=== PATIENT | female | born 1970 | race Caucasian/White ===

== ENCOUNTER 2021-07-09 14:18 | Inpatient (IN) | payer OTHER ==
[~2021-07-09] VITALS: Ht 152.4 cm; Wt 67.6 kg
--- NOTE | ~2021-07-09 | EEG ---
[facility] [place] [address] ELECTROENCEPHALOGRAM Name: PAMELA MENDEZ Room #: 449-I ADM IN M.R.#: [id number] Admission: 07/09/21 Attend Phys: Tra Kim MD Discharge: Date of : 68 Report #: [id number] THIS REPORT FOR: //name// DATE OF SERVICE: 07/10/2021 This patient's EEG was done by placing the electrode by standard 10-20 system of electrode placement. Both referential and sequential montages were used for recording. Background activity in this patient's EEG is about 11 Hz. It is about 40 microvolt. The patient repeatedly goes to sleep and that is associated with bilateral slowing and vertex sharp waves. Throughout the record, no active epileptiform activity was noticed. IMPRESSION: This patient's EEG is within normal limits. Thank you very much for this referral. By: [id number] Tino Smiley MD /nt
--- NOTE | ~2021-07-09 | HC ---
[facility] [place] [address] CONSULTATION Name: PAMELA [facility]ENDEZ [facility] [id number] Admission: 07/09/21 Attend Phys: Tra Kim MD Discharge: Date of : 68 Report #: [id number] THIS REPORT FOR: cc: FAM - No family physician/PCP FAM - No family physician/PCP Tino Smiley MD ~ DATE OF SERVICE: 07/10/2021 HISTORY OF PRESENT ILLNESS: This is a 50-year-old female patient who is difficult to evaluate. She said she had an episode, which evil brought it on. She said that evil has brought this kind of episode even before. She continued to change her history how many times the evil brought this episode on, but she is pretty adamant that all the episodes were brought on by evil. She says during this episode she was conscious because she knew what was going around. She just could not express herself. She believe that evil cut her tongue and that is why she could not express herself. REVIEW OF SYSTEM: Indicates she is COVID positive. She is not having any focal deficit now. Her speech was intact. It was difficult to fully evaluate because she kept going to evil. On admission, it looks like they were told that the patient does not have any psychiatric history, but looks like she does have a psychiatric history. She is very reluctant to provide any other history and it was very difficult to evaluate her in that regard. She was apparently in [facility]. Apparently, she was on Flagyl the best I can tell. I tried to ask her if she drank any alcohol with it or not. She went back to the question of evil at that time. This was the relevant 14-point review of systems, which I could get. PAST MEDICAL HISTORY: Positive for some GI problems. She has been to the [facility]. Very poor and contradictory history in this regard. FAMILY HISTORY: Negative for congenital epilepsy. SOCIAL HISTORY: She says she smokes, but did not elaborate further. PHYSICAL EXAMINATION: Indicate to me she was alert, responsive, able to follow simple and complex command, but she kept going back to the subject of evil. Her neuromuscular and cranial nerve examination, the best it could be carried out, was symmetrical. There was no meningeal sign. I could not look at the patient's fundus. Cardiorespiratory examinations appear unremarkable. In Emergency Room, she had CT angiogram of the head and neck and that does show what looks like some congenital variation, but nothing which can explain the patient's symptoms. I went and reviewed the patient's EEG. EEG is pretty well formed. There is no [address] [address] CONSULTATION Name: PAMELA MENDEZ Room #: 449-I ADM IN M.R.#: [id number] Admission: 07/09/21 Attend Phys: Tra Kim MD Discharge: Date of : 68 Report #: [id number] seizure activity there. IMPRESSION AND PLAN: There is a good chance that the patient's symptoms are psychogenic in origin. I talked to her about that. Psych consult is being requested. Since the history is so poor, I suggested doing an MRI of the brain just to make sure there is no pathology there. I will check the MRI. If MRI shows some abnormality, we will be happy to follow up, but otherwise I think the management is going to be the other known neurological problems. She does have a slightly abnormal TSH and that can be addressed, but it is not bad enough to cause her any symptoms. More than 50 minutes of time was spent taking care of this patient today and that includes counseling, coordinating, reviewing the imaging studies and reviewing the record. By: [id number] Tino Smiley MD /nt
[2021-07-09 14:50] LABS: ABSOLUTE NEUTROPHILS 6.3 thou/uL (1.4-8.2); BASOPHILS 0.6 % (0.0-2.0); EOSINOPHILS 0.1 % (0.0-3.0); HEMATOCRIT 45.8 % (37.0-47.0); HEMOGLOBIN 15.5 gm/dL (12.0-15.0); LYMPHOCYTES 16.9 % (24.0-44.0); MCH 30.8 pg (26.0-34.0); MCHC 33.8 g/dL (28.0-37.0); MCV 91.2 fL (80.0-100.0); MONOCYTES 16.2 % (1.0-8.0); PLATELET COUNT 286 thou/uL (150-400); POLYS 66.2 % (36.0-66.0); RBC 5.02 mil/uL (4.20-5.00); RDW 13.7 % (10.5-14.5); WBC 9.5 thou/uL (4.0-11.0)
[2021-07-09 14:56] LABS: CALCIUM 9.2 mg/dL (8.5-10.1); POTASSIUM 3.9 mmol/L (3.5-5.1)
[2021-07-09 15:06] LABS: ALBUMIN 3.8 g/dL (3.4-5.0); DIRECT BILIRUBIN 0.1 mg/dL (<0.1-0.2); TOTAL BILIRUBIN 0.8 mg/dL (0.2-1.0); TOTAL PROTEIN 7.2 g/dL (6.4-8.2)
[2021-07-09 16:29] LABS: URINE BILIRUBIN NEGATIVE (Negative); URINE BLOOD TRACE (Negative); URINE CLARITY CLEAR; URINE COLOR YELLOW; URINE GLUCOSE-RANDOM* NEGATIVE (Negative); URINE KETONES TRACE (Negative); URINE LEUKOCYTES-REFLEX NEGATIVE (Negative); URINE NITRITE-REFLEX NEGATIVE (Negative); URINE PROTEIN (DIPSTICK) TRACE (Negative); URINE UROBILINOGEN 0.2 E.U./dl (0.2-1.0)
[2021-07-09 16:38] LABS: AMP/METHAMP Negative (Negative); BARBITURATES Negative (Negative); BENZODIAZEPINES Negative (Negative); COCAINE Negative (Negative); METHADONE Negative (Negative); OPIATES Negative (Negative); PCP Negative (Negative)
--- NOTE | 2021-07-09 19:36 | NUR ---
ASSUMED CARE OF PT AT 1900. PT READY TO BE TRANSPORTED TO IN PATIENT FLOOR AT THIS TIME. NO DOCUMENTATION BESIDE A GENERAL AND TRIAGE ASSESSMENT WERE DOCUMENTED ON THIS PT PRIOR TO MY ARRIVAL.
[2021-07-09 19:38] VITALS: BP 118/72
[2021-07-09] MEDS ORDERED: LISINOPRIL-HCT1 EACH PO (20:08)
[2021-07-09] MEDS ORDERED: VITAMIN D-40010 MCG PO (20:10)
[2021-07-09] MEDS ORDERED: K2-4545 MCG PO (20:10)
[2021-07-10 04:52] VITALS: BP 116/66
[2021-07-10 06:03] LABS: ABSOLUTE NEUTROPHILS 3.5 thou/uL (1.4-8.2); BASOPHILS 0.2 % (0.0-2.0); EOSINOPHILS 0.3 % (0.0-3.0); HEMATOCRIT 40.8 % (37.0-47.0); HEMOGLOBIN 13.6 gm/dL (12.0-15.0); LYMPHOCYTES 39.2 % (24.0-44.0); MCH 31.1 pg (26.0-34.0); MCHC 33.4 g/dL (28.0-37.0); MCV 92.9 fL (80.0-100.0); MONOCYTES 14.3 % (1.0-8.0); PLATELET COUNT 237 thou/uL (150-400); RBC 4.39 mil/uL (4.20-5.00); RDW 13.9 % (10.5-14.5); WBC 7.6 thou/uL (4.0-11.0)
[2021-07-10 06:43] LABS: CALCIUM 8.4 mg/dL (8.5-10.1); CREATININE 0.9 mg/dL (0.6-1.0); POTASSIUM 3.1 mmol/L (3.5-5.1)
--- NOTE | 2021-07-10 07:15 | NUR ---
admit pt admitted to room 451 with covid. a/o x4 behavior appropriate vss. telemetry intact reading sr st. at shift she came out of her room and stated god cured her covid and she needed to walk around. day nurse settled her down, mj turcios notified. ordered to moniotor behavior and report to physicians when rounding.
--- NOTE | 2021-07-10 08:09 | EKG ---
[place] [address] [facility] [place] [address] ELECTROCARDIOGRAM REPORT Name: PAMELA MENDEZ Room #: [facility]- ADM IN M.R.#: [id number] Admission: 07/09/21 Attend Phys: Tra Kim MD Discharge: Date of : 68 Report #: [id number] [facility] ED Test Date: 2021-07-09 Test Time: 14:34:19 Pat Name: PAMELA MENDEZ Department: Room: [facility] Gender: F [employer] Consultant: ALEX : 1970 Requested By: Sheldon Arboleda Order Number: [id number] MD: Keagan Saldana Measurements Intervals [place] Rate: 106 P: 65 NH: 140 QRS: 52 QRSD: 75 T: 46 QT: 371 QTc: 493 Interpretive Statements Sinus tachycardia RSR' in V1 or V2, probably normal variant Borderline prolonged QT interval No previous ECG available for comparison Electronically Signed On 07-10-2021 8:08:58 CERTIFIED ATHLETIC TRAINER by Keagan Saldana [email or web address] <ELECTRONICALLY SIGNED> By: Keagan Saldana MD, [facility] 07/10/21 0808 1434 1434 Keagan Saldana MD, FACC /EPI
[2021-07-10 09:06] LABS: ALBUMIN 3.6 g/dL (3.4-5.0); DIRECT BILIRUBIN 0.2 mg/dL (<0.1-0.2); TOTAL BILIRUBIN 0.6 mg/dL (0.2-1.0)
[2021-07-10 10:00] VITALS: BP 124/74
--- NOTE | 2021-07-10 13:55 | NUR ---
PT ADMITTED RELATED TO AMS AND COVID. CM REVIEWED CHART AND SPOKE WITH CARE TEAM. CM CALLED AND SPOKE WITH PT VIA PHONE THIS AM. SHE APPEARED TO BE ALERT AND ORIENTED. CM ROLE INTRODUCED. PT INDICATED HE HAD BEEN LIVING IN A HOUSE WITH HER SIG OTEHR JENNIFER CUNHA VICE PRESIDENT FOR INSTRUCTION. SHE INDICATED THAT THERE ARE 7 STEPS TO ENTER THE HOME AND 2 SETS OF 7 STEPS INSIDE. SHE INDICATED SHE HAD BEEN INDEPDENENT WITH GAIT AND ADLS VICE PRESIDENT FOR INSTRUCTION AND THAT SHE HAD BEEN ASSISTING SIG OTHER PHYSICALLY AT TIMES. PT INDICATE THAT HER PCP IS DR. CARO SKAGGS. PT'S MOTHER KAYLA KNIGHT IS A GOOD CONTACT FOR HER . CM CALLED AND SPOKE WITH MOTHER AND SHE CONFIRNED THE ABOVE. SHE INIDCATED SHE RESIDES IN [place] AND IS 72 BUT THAT SHE HAD SPOKEN TO PT DURING THE LAST 11 DAYS DAILY AND THAT THE CONDITION IN WHICH PT ADMITTED IN IS NOT NORMAL FOR PT WHO IS USUALLY AN ANALYTICAL THINKER AND A TALKER. NEURO CONSULTED WELL PSYC. CM FOLLOWING REGARDING DC PLANNING.
--- NOTE | 2021-07-10 15:59 | NUR ---
AT SHIFT CHANGE THIS MORNING PATIENT WALKED INTO KAMARA NO MASK ON, STATING "GOD HAS CURED ME." PATIENT WAS REDIRECTED BACK TO ROOM AND REMAINED IN THERE STILL HAVING DELIUSION THOUGHT OF GOD SPEAKING TO HER. CONSULTED PSYCH. AFTER EVAL PATIENT WAS MOVED TO ROOM 449 WHERE A SITTER COULD WATCH PATIENT THROUGH WINDOW. PER PSYCHES ORDER FOR SITTER AT BEDSIDE. BELONGING WERE TAKEN FROM PATIENT AND LABELED AND PUT INTO MED ROOM.
[2021-07-10 16:21] VITALS: BP 149/87
--- NOTE | 2021-07-11 07:54 | NUR ---
ORDERS FOR EVAL AND TREAT. Pt IS HAVING NO DIFFICULTY WITH MOBILITY AND HAS ACTUALLY WALKED OUT IN HALLWAY DUE TO BEHAVIORS. WILL DEFER FORMAL P.T. EVAL BUT Pt APPEARS SAFE WITH HER MOBILITY
--- NOTE | 2021-07-11 08:24 | NUR ---
ASSUME CARE 1900. PT/VITALS STABLE. NO DISTRESS NOTED. PT NOTED PACING IN ROOM THROUGHOUT THE NIGHT. NO SLEEP NOTED. PT IS CALM AND COOPERATIVE WITH CARE. DENIES ANY PAIN. UP AD LUCIANO. IS TEARFUL AT TIMES/STATES WANTS TO EST BUT IS AFRAID SHE WILL HURT. FREQUENT REDIRECTING. NO AGRESSION NOTED. PT APPEARS VERY CALM. ASSESSMENT CHARTED. PROGRESSING WELL WITH POC. PLAN IS TO CONTINUE TO MONITOR MENTAL STATUS/CONTINUE WITH ABX THERAPY. WILL CONTINUE TO MONITOR AND FOLLOW WITH POC
--- NOTE | 2021-07-11 14:13 | NUR ---
CM REVIEWED CHART CHART AND SPOKE WITH CARE TEAM. PSYC INDICATED THAT PT IS MORE PSYCHOTIC THIS DAY AND REMAINS ON IV ABX. CM FOLLOWING REGARDING DC PLANNING NEEDS.
[2021-07-11 16:12] VITALS: BP 123/74
--- NOTE | 2021-07-11 18:28 | NUR ---
PATIENT IN ROOM WITH 1:1 SITTER; PATIENT APPEARS WITH FLAT GAZE; DENIES SI AT THIS TIME; HYPER-RELIGOUS ACTIONS THROUGHOUT THE DAY; A&O*4; UP ADLIB WITH SUPERVISION; VSS ON ROOMAIR, MEDSURG STATUS CHANGED FADY DR.HURA BRIZUELA; LUNG SOUNDS DIMINISHED WITH WHEEZING NOTED DURING AUSCULTATION; NO S/O DISTRESS NOTED; BSP*4, NONTENDER; 22G IV IN LEFT HAND WITH N.S RUNNING 75ML/HR; PATIENT WAS CONSULTED FOR PSYCH; MEDICATION COMPLIANT; PATIENT WAS SENT DOWN TO GET MRI @1530, PATIENT AGREED TO GO, ONCE DOWNSTAIRS PATIENT BECAME UNCOMPLIANT WITH SCAN AND SECURITY WAS CALLED TO ASSIST PATIENT BACK TO HER ROOM; DELUSIONS PRESENT WITH DISORGANIZED THOUGHTS; PATIENT PRESENTS VERY PARNOID WITH ALL CARES AND TAKES INCREASED TIME TO AGREE TO ALL TASKS INCLUDING EATING MEALS;
[2021-07-11 20:08] VITALS: BP 131/80
--- NOTE | 2021-07-12 03:40 | NUR ---
ASSUMED CARE AT 1930 OF 07/11. PATIENT REMAINS ON 1:1 SITTER. PATIENT APPEARS WITH FLAT GAZE, BUT BECOMES TEARFUL AND ANXIOUS INTERMITTENTLY. AGREEABLE WITH MEDICATION ADMINISTRATION. THERAPUTIC COMMUNICATION IMPLEMENTD WHEN COMMNUNICATING WITH PATIENT. MOVABLE BULKHEAD INSTALLER CAME BY AT START OF SHIFT AND PROVIDED PATIENT WITH BIBLE AND DEVOTIONAL PER PATIENTS REQUEST. PATIENT HAS BEEN READING ON AND OFF DURING THE NIGHT. PATIENT HAS BEEN DOSING ON AND OFF. SHE REPORTS THAT SHE NEEDS TO STAY UP AND AND FIGHT THE URGE TO SLEEP TO PROVE THAT SHE HAS PERSEVERANCE. PATIENT IS ENCOURAGED TO SLEEP AND REST BECUASE IT IS IMPORTANT FOR HER HEALING PROCESS. PATIENT AGREES, BUT REPORTS SHE FEELS GUILTY WHEN SHE FALLS ASLEEP. EMOTIONAL SUPPORT PROVIDED. CALL LIGHT LEFT WITHIN REACH, AND PATIENT HAS BEEN MAKING HER NEEDS KNOWN. PROVIDED WITH SNACKS. WILL CONTINUE TO MONITOR.
--- NOTE | 2021-07-12 08:23 | HC ---
[facility] [place] [address] CONSULTATION Name: PAMELA MENDEZ Room #: [facility] ADM IN .R.#: [id number] Admission: 07/09/21 Attend Phys: Tra Kim MD Discharge: Date of : 68 Report #: [id number] THIS REPORT FOR: cc: FAM - No family physician/PCP FAM - No family physician/PCP Pablo Lala MD ~ DATE OF SERVICE: 07/11/2021 INFECTIOUS DISEASE CONSULTATION ATTENDING PHYSICIAN: Dr. Kim. REASON FOR EVALUATION: COVID-19 infection. Also apparent coag-negative Staphylococcus septicemia. HISTORY OF PRESENT ILLNESS: Chart reviewed. The patient examined. This is a 50-year-old woman who was admitted through the Emergency Room. It is notable she has underlying significant psychiatric history. She was recently hospitalized with what is described as colitis at a different hospital. She was found to be markedly encephalopathic and now is alert, calm, as required 1:1 with a sitter as per the initial evaluation. Blood cultures were collected now, both of which are growing organisms, one is described as Staphylococcus hominis, the other is gram-positive cocci, awaiting susceptibilities. She was empirically started on antimicrobial therapy with cefepime and vancomycin. She has generally a flat affect. She does admit to pain, although describes pain in her sole. She is not aware of any fevers. She has a diminished p.o. intake. She denies dyspnea or cough. ALLERGIES: Listed to CORTICOSTEROIDS, PENICILLINS, QUINOLONES, METRONIDAZOLE, OMEPRAZOLE. She is not aware of any particular rashes other than the omeprazole, perhaps more attributable to adverse drug effects. CURRENT MEDICATIONS: Includes vancomycin, risperidone, trazodone, lorazepam, lisinopril, pantoprazole, lorazepam, enoxaparin, cefepime, hydralazine, ondansetron, and vancomycin. PAST MEDICAL HISTORY: Recent hospitalization with colitis, hypertension, previous history of esophageal and duodenal ulcers, gastritis with reflux, fracture of cervical spine and a diagnosis of COVID. SOCIAL HISTORY: Former smoker. Does not use marijuana. No ethanol. FAMILY HISTORY: Noncontributory. REVIEW OF SYSTEMS: Otherwise, unremarkable. [facility] [address] [place] [address] CONSULTATION Name: PAMELA MENDEZ Room #: 449-I [facility].#: [id number] Admission: 07/09/21 Attend Phys: Tra Kim MD Discharge: Date of : 68 Report #: [id number] PHYSICAL EXAMINATION: GENERAL: She has a flat affect. She is not overtly distressed. She appears pale. VITAL SIGNS: Temperature 98.4, pulse 66, respirations 20, blood pressure 123/74. SKIN: Warm, dry, no rashes. HEENT: Normocephalic. Extraocular muscles intact. NECK: Supple. She is maintained on room air. LUNGS: Diminished breath sounds. Few scattered crackles at the bases. HEART: Regular, borderline bradycardic. I do not appreciate a murmur. ABDOMEN: Soft, nontender. EXTREMITIES: No cyanosis. GENITOURINARY AND RECTAL: Deferred. LABORATORY DATA: Blood cultures as described above. TSH is 0.183, free T4 of 1.5. Hepatic panel: AST of 68, ALT of 76, albumin 3.6, total protein 6.0. Procalcitonin less than 0.05. CBC: White count of 7.6, H and H of 13.6 and 40.8, platelets of 237. Positive coronavirus testing. CT abdomen and pelvis showed mild sigmoid colonic diverticulosis with circumferential mural thickening, pericolonic inflammation, question of some colitis, otherwise unremarkable for any active process. ____ is 0.9. CT of the neck with contrast without significant abnormality. ASSESSMENT AND PLAN: COVID-19 infection, complicated by ____ encephalopathy. Secondly, she has positive blood cultures, /. We would wait for second result. If different Coag-negative Staphylococcus, we would view them as a contaminant. At this point, we would continue treatment with combination therapy; in the event of suspected false positive, would be able to back off that as well. At this point, I do not think there is a necessity to treat any active COVID infection in particular, no evidence of pneumonitis. She is maintained in isolation. Continue to monitor expectantly. <ELECTRONICALLY SIGNED> By: Pablo Lala MD 07/12/21 0823 1621 2210 Pablo Lala MD /nt
--- NOTE | 2021-07-12 16:46 | NUR ---
PER DR. PARKER'S REQUESTED JEAN HAD SENT CONSULT TO [facility] FOR THEM TO MEET WITH PT TO DETERMINE SERVICES UPON DC. JEAN REACHED OUT TO HEMAL LEBRON THURSDAY AFTERNOON. SHE INDICATED THAT SHE CAN COME SEE HER TOMORROW Thursday07.13.21 LATE MORNING. CM FOLLOWING REGARDING DC PLANNING.
[2021-07-13 03:24] VITALS: BP 125/77
[2021-07-13 06:44] LABS: ALBUMIN 3.3 g/dL (3.4-5.0); CALCIUM 8.8 mg/dL (8.5-10.1); CREATININE 0.7 mg/dL (0.6-1.0); MAGNESIUM 2.1 mg/dL (1.8-2.4); POTASSIUM 4.1 mmol/L (3.5-5.1); TOTAL BILIRUBIN 0.7 mg/dL (0.2-1.0)
[2021-07-13 07:21] VITALS: BP 118/72
--- NOTE | 2021-07-13 12:07 | NUR ---
MONIKA FROM [facility] CALLED ABOUT A CONSULT SHE RECIEVED, REPORTS SHE WILL BE IN TO SEE THE PT 07/14/21 MID MORNING
--- NOTE | 2021-07-13 15:40 | NUR ---
Upon assessment patient was A&OX4 and pleasant howvever patient did have times of tearfulness "missing her mom". Phone was brought to her room and she was able to speak with her mother. Vitals remain stable. Provider rounded on patient. No new medical concerns seen. Patient denies new needs. Plan is for [facility] to assist with discharge.
[2021-07-13 16:05] VITALS: BP 123/71
[2021-07-13 19:31] VITALS: BP 138/79
--- NOTE | 2021-07-14 03:47 | NUR ---
IN AGREEMENT WITH NURSE ARMANDO ON THE ASSESSMENT OF THIS PT. PT HAS DEPRESSION WITH RECENT SUICIDAL IDEATIONS. CURRENTLY NO IDEATIONS. AFTER PSYCH EVALUATION IT IS DETERMINED PT HAS BIPOLAR WITH PSYCHOSIS. CALLS OUT APPROPRIATELY FOR ASSISTANCE. AT TIMES CAN BE TEARFUL AND ANXIOUS. CALL LIGHT IS WITHIN REACH.
[2021-07-14 07:32] VITALS: BP 116/48
[2021-07-14 16:47] VITALS: BP 127/70
--- NOTE | 2021-07-14 18:24 | NUR ---
Patient resting pleasantly, talking on the phone with family. RN gave back purse, clothes and cell phone to patient per patient request. Patient taking a shower, no pain, call light within reach.
[2021-07-14 19:30] VITALS: BP 123/75
[2021-07-15] VITALS (7 sets, daily range): BP systolic 115–135; BP diastolic 65–79
[2021-07-15] MEDS ORDERED: TRAZODONE HCL50 MG PO (16:14)
[2021-07-15] MEDS ORDERED: RISPERIDONE0.5 M1 PO (16:14)
--- NOTE | 2021-07-15 16:53 | NUR ---
HOSPITALIST, DR. PARKER AND PAPO WITH [facility] ALL SAW PT THIS AFTERNOON. IT WAS INDICATED THAT PT WAS DOING BETTER. [facility] COMPLETED A SAFTEY PLAN WITH PT. DR. PARKER IS RECOMMENDING PT ESTABLISH HERSELF WITH [facility] UPON DC. A OR MEDICAID APPLICATION WAS FILED DURING PT'S ADMISSION. CARE TEAM HAVE INDICATED THAT PT IS MEDICALLY STABLE TO DC HOME THIS DAY. PT TO DC HOME TO SELF CARE. [facility] PROVIDED. NO OTHER CM INTERVENTION INDICATED. CASE CLOSED.
--- NOTE | 2021-07-15 17:39 | NUR ---
RESUMMED CARE; PATIENT IN ROOM RELAXING IN CHAIR; PATIENT DENIES PAIN-SOB-CP; PATIENT HAS NO COMPLAINTS TO VOICE AT THIS TIME; A&O*4; HYPERVERBAL; DENIES SI/HI/AVH; VSS ON ROOM AIR; ON ENHANCED PRECAUTIONS ON ROOM AIR; IV IN THE LEFT FORARM-D/C LINE @1730; PATIENT STATES SHE HAS SOME ANXIETY BUT "THATS NORMAL." PATIENT SENT FOR MRI TODAY; PATIENT SCAN WAS CLEAN AND DISCHARGE ORDERS WERE RECIEVED; PATIENT TO BE DISCHARGED HOME; CALL LIGHT WITHIN REACH; EDUCATION GIVEN;
--- NOTE | 2021-07-15 19:51 | NUR ---
DAY SHIFT NURSE PROVIDED DC EDUCATION AND DC PAPER WORK AND REPORT RECIEVED, JUST WAITING ON RIDE. PTS RIDE CAME UP TO ELEVATOR. ALL BELONGINGS TAKEN WITH PATIENT. AMBULATED OUT WITH FRIEND MELECIO. PIV ALREADY REMOVED. ALL QUESTIONS AND EDUCATION ANSWERED
== END 2021-07-15 19:35 | disposition home or self-care (01) | DRG 178 ==
LOC: ER 14:18 → EROBS 18:06 → 4W 19:37
PROVIDERS: Nurse Practitioner; Student in an Organized Health Care Education/Training Program; ADMIT Internal Medicine; ATTEND Internal Medicine
DX: U07.1 COVID-19 (principal); G93.40 Encephalopathy, unspecified; E87.2 Acidosis; R45.851 Suicidal ideations; F23 Brief psychotic disorder; I10 Essential (primary) hypertension; F31.9 Bipolar disorder, unspecified; Z88.1 Allergy status to other antibiotic agents; Z88.0 Allergy status to penicillin; Z88.8 Allergy status to other drugs, medicaments and biological substances; Z87.891 Personal history of nicotine dependence
CPT/HCPCS: 10040; 10045

== ENCOUNTER 2021-07-21 12:39 | Emergency (ER) | payer OTHER ==
[~2021-07-21] VITALS: Ht 162.6 cm; Wt 69.8 kg
[~2021-07-21 12:39] MED LIST: K2-4545 MCG PO; LISINOPRIL-HCT1 EACH PO; RISPERIDONE0.5 M1 PO; TRAZODONE HCL50 MG PO; VITAMIN D-40010 MCG PO
[2021-07-21 13:39] LABS: URINE BILIRUBIN NEGATIVE (Negative); URINE BLOOD 1+ (Negative); URINE CLARITY CLEAR; URINE COLOR YELLOW; URINE GLUCOSE-RANDOM* NEGATIVE (Negative); URINE KETONES 1+ (Negative); URINE NITRITE-REFLEX NEGATIVE (Negative); URINE PROTEIN (DIPSTICK) NEGATIVE (Negative); URINE SPECIFIC GRAVITY 1.025 (1.005-1.035); URINE UROBILINOGEN 0.2 E.U./dl (0.2-1.0)
[2021-07-21 13:42] LABS: URINE LEUKOCYTES-REFLEX 1+ (Negative)
[2021-07-21 14:08] LABS: AMP/METHAMP Negative (Negative); BARBITURATES Negative (Negative); BENZODIAZEPINES Negative (Negative); COCAINE Negative (Negative); METHADONE Negative (Negative); OPIATES Negative (Negative); PCP Negative (Negative)
[2021-07-21 14:08] LABS: ABSOLUTE NEUTROPHILS 4.2 thou/uL (1.4-8.2); BASOPHILS 0.7 % (0.0-2.0); EOSINOPHILS 1.1 % (0.0-3.0); HEMATOCRIT 42.2 % (37.0-47.0); LYMPHOCYTES 24.7 % (24.0-44.0); MCH 31.1 pg (26.0-34.0); MCHC 33.3 g/dL (28.0-37.0); MCV 93.6 fL (80.0-100.0); MONOCYTES 12.1 % (1.0-8.0); PLATELET COUNT 273 thou/uL (150-400); POLYS 61.4 % (36.0-66.0); RBC 4.51 mil/uL (4.20-5.00); RDW 13.8 % (10.5-14.5); WBC 6.9 thou/uL (4.0-11.0)
[2021-07-21 14:09] LABS: BACTERIA-REFLEX 1-9 Few /HPF (None Seen); CASTS None Seen /LPF (None Seen); MUCUS 0-3 Light strn/LPF (None Seen); SQUAMOUS 4-10 Moderate /LPF (0-3); URINE RBC 3-10 Few /HPF (NONE SEEN); URINE WBC-REFLEX 0-5 Rare /HPF (0-5)
[2021-07-21 14:10] LABS: CRYSTALS None Seen /LPF (None Seen)
[2021-07-21 14:43] LABS: CALCIUM 9.2 mg/dL (8.5-10.1); CREATININE 0.9 mg/dL (0.6-1.0); POTASSIUM 3.4 mmol/L (3.5-5.1)
[2021-07-21 14:53] LABS: TOTAL BILIRUBIN 1.5 mg/dL (0.2-1.0); TOTAL PROTEIN 6.6 g/dL (6.4-8.2)
[2021-07-21 17:24] VITALS: BP 125/75
--- NOTE | 2021-07-22 07:24 | EKG ---
[place] [address] [facility] [place] [address] ELECTROCARDIOGRAM REPORT Name: PAMELA MENDEZ [id number] Admission: 07/21/21 Attend Phys: Discharge: 07/21/21 Date of : 68 Report #: [id number] [facility] ED Test Date: 2021-07-21 Test Time: 14:06:50 Pat Name: PAMELA MENDEZ Department: Room: Gender: F Mobile Paramedical Examiner: : 1970 Requested By: Pamlea Arevalo Order Number: [id number] MD: Thor Gentile Measurements Intervals [place] Rate: 87 P: 78 MD: 151 QRS: 54 QRSD: 74 T: 46 QT: 390 QTc: 470 Interpretive Statements Sinus rhythm Compared to ECG 07/09/2021 14:34:19 Sinus tachycardia no longer present Electronically Signed On 07-22-2021 7:24:09 CARE TEAM ASSISTANT by Thor Gentile [email or web address] <ELECTRONICALLY SIGNED> By: Thor Gentile MD, [facility] 07/22/21 0724 1406 1406 Thor Gentile MD, FACC /EPI
== END 2021-07-21 17:25 | disposition home or self-care (01) ==
LOC: ER 12:39
PROVIDERS: Physician Assistant
DX: F12.980 Cannabis use, unspecified with anxiety disorder (principal); Z20.822 Contact with and (suspected) exposure to COVID-19; I10 Essential (primary) hypertension; Z79.899 Other long term (current) drug therapy; Z88.0 Allergy status to penicillin; Z88.1 Allergy status to other antibiotic agents; Z88.8 Allergy status to other drugs, medicaments and biological substances